=== PATIENT | male | born 1995 | race Caucasian/White ===

== ENCOUNTER 2019-12-28 01:40 | Emergency (ER) | payer BC ==
[2019-12-28] MEDS ORDERED: ASPIRIN TABLET 325 MG TAB PO ONE (02:00)
[2019-12-28 02:02] VITALS: TEMP 97.8
--- NOTE | 2019-12-28 02:04 | ED.PDOC ---
History of Present Illness - General Chief Complaint: Neuro Symptoms/Deficits Stated Complaint: I have numbness and tingling in my hands Time Seen by Provider: 12/28/19 01:59 Source: patient, RN notes reviewed, Vital Signs reviewed, family Exam Limitations: no limitations - History of Present Illness Initial Comments: This is a 24-year-old male presenting to the emergency department with chief complaint of upper abdominal and chest discomfort onset approximately 15 minutes ago while in the parking lot at [facility]. He states he had intermittent episodes of pain for several days it lasted few minutes. He stated today's episode was different than that he is never been short of breath with it and he also began to have tingling in both hands. He reports bilateral hand paresthesias that are still present, this began around 15 minutes ago as well. He denies any vomiting. No previous cardiac history. Mother has a reported history of a "blood disease" but patient does not know what the name of the disorder is. He has never been tested for personally. Allergies/Adverse Reactions: Allergies NO KNOWN ALLERGY Allergy (Unverified 10/12/12 22:22) Review of Systems - Review of Systems Constitutional: Denies: chills, fever, weakness EENTM: Denies: ear pain, nose congestion, throat pain, mouth pain Respiratory: States: orthopnea, short of breath. Denies: cough, stridor, wheezing Cardiology: States: chest pain. Denies: edema, palpitations, syncope Gastrointestinal/Abdominal: States: abdominal pain, nausea. Denies: constipation, diarrhea, vomiting Genitourinary: Denies: dysuria Musculoskeletal: Denies: back pain, joint pain, joint swelling, muscle pain, muscle stiffness Skin: Denies: dryness, rash Neurological: States: paresthesia. Denies: headache, tremors, weakness Endocrine: Denies: increased hunger, increased urine, unexplained weight gain, unexplained weight loss Hematologic/Lymphatic: Denies: anemia, blood clots, easy bruising Past Medical History (General) - Patient Medical History Hx Seizures: No Hx Stroke: No Hx Dementia: No Hx of COPD: No Hx Cardiac Disorders: No Hx Congestive Heart Failure: No Hx Pacemaker: No Hx Hypertension: No Hx Thyroid Disease: No Hx Diabetes: No Hx Gastroesophageal Reflux: No Hx Renal Disease: No Hx of HIV: No Surgical History: no surgical history - Vaccination History Hx Tetanus, Diphtheria Vaccination: Yes Hx Influenza Vaccination: Yes Hx Pneumococcal Vaccination: No - Social History Hx Tobacco Use: Yes Hx Chewing Tobacco Use: Yes Hx Alcohol Use: Yes Hx Substance Use: No Hx Substance Use Treatment: No Hx Depression: No Family Medical History - Family History Mother Family History: Unknown Living Status: Unknown Physical Exam - Physical Exam General Appearance: Alert, No apparent distress Eye Exam: bilateral normal Ears, Nose, Throat: hearing grossly normal, normal ENT inspection Neck: non-tender, full range of motion, supple Respiratory: chest non-tender, normal breath sounds, no respiratory distress, no accessory muscle use, respiratory distress Cardiovascular/Chest: normal peripheral pulses, no edema, no gallop, no JVD, no murmur, tachycardia Peripheral Pulses: radial,right: 2+, radial,left: 2+ Gastrointestinal/Abdominal: soft, tenderness - Epigastric Back Exam: normal inspection, no CVA tenderness, no vertebral tenderness Extremity: normal range of motion, non-tender, normal inspection, no pedal edema, no calf tenderness Neurologic: no motor/sensory deficits, alert, normal mood/affect, oriented x 3 Skin Exam: normal color, warm/dry Progress - Progress Progress: 12/28/19 02:57 Rechecked. Patient resting comfortably, tingling hand is resolved. Easily aroused. Discussed lab/x-ray findings. Patient reports some mild persistent epigastric pain, will give GI cocktail and reassess 12/28/19 03:03 Patient reports complete relief with GI cocktail. Feels much better ready go home. Discussed my suspicion for gastritis. I recommended he decrease alcohol intake, and will start PPI for at least 2 weeks. Recommend he follow-up with his PCP in 3 to 5 days for recheck. Patient also mentioned that he has had increased daytime somnolence and frequent wake ups throughout the night ongoing for several months. He tried to get a sleep study several months ago but was unable to afford it and insurance would not cover it. He has since changed insurance companies. I recommended he discuss possibility of arranging for outpatient sleep study with his PCP. DDX: Gastritis, pancreatitis, PUD, low suspicion for ACS/aortic dissection MDM: 24-year-old male with no significant past medical history presenting with epigastric pain and paresthesias to both hands after drinking alcohol tonight. Tender midepigastric on exam. Distal pulses are normal, no respiratory distress, no focal findings on neuro exam. His troponin is negative, potassium minimally low at 3.1. EKG without acute ischemic changes. Pain improved with GI cocktail, strongly suspect GI origin versus pain. Paresthesias likely related to his low potassium versus possible anxiety reaction. No indication for admission at this time. Will discharge home with plan for follow-up with PCP in 3 to 5 days for recheck. Strict was given to return the emergency room for worsening pain, fever, vomiting blood, blood in stool, dyspnea, syncope, or any other concerns. Danis Centeno DO [id number] - Results/Orders Results/Orders: EKG reviewed personally by me at 2:07 AM. Normal sinus rhythm, rate of 99, normal axis, borderline QTC at 462, nonspecific T wave flattening in the inferior and lateral leads, no ST segment elevations or depressions EXAM DESCRIPTION: Chest,1 View CLINICAL HISTORY: chest pain COMPARISON: 09/12/2019 FINDINGS: Single frontal view of the chest. Cardiomediastinal silhouette: Normal size and contour. Lungs: No consolidation, pneumothorax, or pleural effusion. Bones: No acute osseous abnormality. Upper abdomen: No abnormality identified. IMPRESSION: 1. No acute pulmonary process identified. Electronically signed by: Yogesh Heard 12/28/2019 2:21 AM 12/28/19 02:00 EKG STAT Laboratory Results - last 24 hr 12/28/19 12/28/19 12/28/19 02:10 02:10 02:10 WBC 5.4 RBC 4.90 Hgb 15.1 Hct 42.1 MCV 85.8 MCH 30.7 MCHC 35.8 RDW 12.9 Plt Count 242 MPV 7.3 L Absolute Neuts (auto) 2.80 Absolute Lymphs (auto) 1.90 Absolute Monos (auto) 0.40 Absolute Eos (auto) 0.10 Absolute Basos (auto) 0.20 H Neutrophils % 51.3 Lymphocytes % 35.4 Monocytes % 8.0 Eosinophils % 1.4 Basophils % 3.9 H D-Dimer, Quantitative < 131 L Sodium 137 Potassium 3.1 L Chloride 104 Carbon Dioxide 20 L Anion Gap 16.1 BUN 14 Creatinine 0.90 BUN/Creatinine Ratio 15.6 Random Glucose 124 H Serum Osmolality 275.7 Calcium 8.7 Total Bilirubin 0.7 AST 26 ALT 38 Alkaline Phosphatase 75 Troponin I Serum Total Protein 7.2 Albumin 4.2 Globulin 3.0 Albumin/Globulin Ratio 1.4 Lipase 27 Ethyl Alcohol 12/28/19 12/28/19 02:10 02:10 WBC RBC Hgb Hct MCV MCH MCHC RDW Plt Count MPV Absolute Neuts (auto) Absolute Lymphs (auto) Absolute Monos (auto) Absolute Eos (auto) Absolute Basos (auto) Neutrophils % Lymphocytes % Monocytes % Eosinophils % Basophils % D-Dimer, Quantitative Sodium Potassium Chloride Carbon Dioxide Anion Gap BUN Creatinine BUN/Creatinine Ratio Random Glucose Serum Osmolality Calcium Total Bilirubin AST ALT Alkaline Phosphatase Troponin I < 0.02 Serum Total Protein Albumin Globulin Albumin/Globulin Ratio Lipase Ethyl Alcohol 80.30 H* Departure - Departure Clinical Impression: Paresthesia of hand, bilateral, Hypokalemia Acute alcoholic gastritis Qualifiers: Gastritis bleeding: without bleeding Qualified Code(s): K29.20 - Alcoholic gastritis without bleeding Time of Disposition: 03:05 Disposition: Discharge to Home or Self Care Condition: Good Departure Forms: ED Discharge - Pt. Copy, Patient Portal Self Enrollment Diet: resume usual diet Activity: increase activity as tolerated Referrals: Victor M Ordoñez MD [Primary Care Provider] - 1-2 Weeks
--- NOTE | 2019-12-28 02:22 | RAD ---
EXAM DESCRIPTION: Chest,1 View CLINICAL HISTORY: chest pain COMPARISON: 09/12/2019 FINDINGS: Single frontal view of the chest. Cardiomediastinal silhouette: Normal size and contour. Lungs: No consolidation, pneumothorax, or pleural effusion. Bones: No acute osseous abnormality. Upper abdomen: No abnormality identified. IMPRESSION: 1. No acute pulmonary process identified. Electronically signed by: Yogesh Heard 12/28/2019 2:21 AM CDT
[2019-12-28] MEDS ORDERED: ALUM & MAG HYDROX-SIMETHICONE 30 ML, LIDOCAINE VISCOUS 2% 15 ML PO ONE ×2 (02:54)
[2019-12-28 02:56] VITALS: BP 122/77; O2SAT 97
[2019-12-28] MEDS ORDERED: POTASSIUM CHLORIDE 20 MEQ TAB PO ONE (03:10)
== END 2019-12-28 03:20 | disposition home or self-care (01) ==
LOC: ER 01:40
DX: R20.2 Paresthesia of skin (principal); E87.6 Hypokalemia; K29.20 Alcoholic gastritis without bleeding; R07.9 Chest pain, unspecified